=== PATIENT | female | born 1970 | race Caucasian/White ===

== ENCOUNTER 2016-05-09 14:13 | Emergency (ER) | payer BC ==
[~2016-05-09 14:13] MED LIST: ABILIFY20 M1 PO; ABILIFY30 M1 PO; ADVAIR 2501 DISK W/D; ALBUTEROL17 GM; ALBUTEROL17 GM INH; ANASTROZOLE1 M1 PO; ASPIRIN81 MG PO; ATIVAN1 MG PO; BETAGAN5 M1 EACH EYE; BUSPAR15 MG PO; BUSPIRONE HCL15 M2 PO; CALCIUM 600 +1 EA23 PO; CALCIUM 600 +1 EAC2 PO; CALCIUM CITRATE1 TA2 PO; CALCIUM OYSTER500 MG PO; CALCIUM600 MG PO; CELEBREX100 MG PO; CIPRO500 M2 PO; CLONAZEPAM1 MG PO; EFFEXOR XR150 MG; EFFEXOR XR75 M1 PO; EFFEXOR XR75 MG; EFFEXOR XR75 MG PO; EFFEXOR75 MG PO; FISH OIL 1,0001 CA1; FISH OIL 1,0001 CA1 PO; FISH OIL 1,2001 CAP PO; FISH OIL 1,2001 EAC7 PO; FLAGYL500 MG PO; FUROSEMIDE20 MG PO; GLUCOPHAGE XR500 M1 PO; HYDROCODON-ACE1 EAC8 PO; HYDROCODONE/APA1 TAB PO; IRON1 TA1 PO; K-DUR10 ME1 PO; KEFLEX500 MG PO; KLONOPIN1 MG PO; KLOR-CON 1010 ME1 PO; LASIX20 M1 PO; LASIX20 MG PO; LIPITOR10 M1 PO; LISINOPRIL5 M1 PO; LITHIUM CARBON300 M PO; LOPRESSOR25 MG/TA1 PO; LORAZEPAM1 MG PO; LYRICA50 MG PO; MACROBID 100 M100 MG PO; MACRODANTIN100 M1 PO; MOTRIN600 MG; MULTIVITAMIN1 CAP PO; MULTIVITAMIN1 TAB PO; MULTIVITAMINS1 EAC6 PO; NAPRELAN375 MG PO; NAPRELAN500 M2 PO; NAPROXEN CR500 MG PO; NOLVADEX20 MG PO; NORCO 10-325 T1 EACH PO; OMEPRAZOLE20 M3 PO; OMEPRAZOLE40 MG PO; PHENTERMINE H37.5 M2 PO; PLAQUENIL200 M1 PO; PREDNISONE20 MG PO; PRILOSEC40 M1 PO; PROCHLORPERAZIN10 MG; PROLIA60 MG/1 M1 SQ; PROVENTIL17 GM; SEPTRA DS TABLE1 TAB PO; STOP HOME MEDICATION; SYNTHROID100 MC1 PO; SYNTHROID50 MCG PO; SYNTHROID75 MCG PO; TOPIRAMATE25 M3 PO; TRAMADOL HCL50 MG PO; TRILEPTAL150 MG PO; TRILEPTAL300 MG PO; TYLENOL325 M2 PO; TYLENOL500 MG; ULTRAM50 MG PO; VIACTIV TA1 TAB.CHEW; VITAMIN B121000 MCG PO; VITAMIN B12500 MCG PO; VITAMIN C500 MG PO; VITAMIN D1000 UNI1 PO; VITAMIN D1000 UNIT PO; WELLBUTRIN XL150 MG; WOMEN'S ONE DAI1 TAB; XALATAN2.5 M1 OP; XANAX0.5 MG; ZOCOR20 MG PO; ZOFRAN8 MG; [UNRECOGNIZED DRUG - CODE] PO
[2016-05-09] MEDS ORDERED: COSOPT EYE DROP10 ML EACH EYE (14:43)
[2016-05-09] MEDS ORDERED: JUBLIA4 ML TP (14:43)
[2016-05-09] MEDS ORDERED: XALATAN2.5 M1 EACH EYE (14:44)
[2016-05-09] MEDS ORDERED: PROVIGIL200 M1 PO (14:44)
[2016-05-09] MEDS ORDERED: PHENTERMINE H37.5 M2 PO (14:45)
[2016-05-09] MEDS ORDERED: PROLIA60 MG/1 M1 SC (14:45)
[2016-05-09] MEDS ORDERED: TOPAMAX25 M2 PO (14:46)
[2016-05-09] MEDS ORDERED: GLUCOSAMINE CH1 EAC7 PO (14:47)
[2016-05-09] MEDS ORDERED: OXYCONTIN20 M2 PO (14:48)
[2016-05-09] MEDS ORDERED: PERCOCET 5-3251 EACH PO (14:48)
[2016-05-09] MEDS ORDERED: ASPIRIN EC81 MG PO (14:54)
[2016-05-09] MEDS ORDERED: PROAIR HFA8.5 GM INH (14:56)
[2016-05-09 15:31] LABS: BASO % 0.3 % (0-2); EOS % 3.1 % (0-7); EOSINOPHIL ABSOLUTE COUNT 0.1 tho/cmm (0.0-0.7); HCT-HEMATOCRIT 34.9 % (34.0-49.0); IMMATURE GRANULOCYTES ABSOLUTE 0.01 tho/cmm (0-0.03); IMMATURE GRANULOCYTES PERCENT 0.3 % (0-0.3); LYMPH % 27.8 % (20-45); LYMPH ABSOLUTE COUNT 1.1 tho/cmm (0.8-4.5); MCH (MEAN CORPUSCULAR HGB) 24.9 pg (28.0-32.0); MCHC MEAN CORPUSCULAR HGB CONC 31.5 % (32.0-36.0); MONO % 6.4 % (0-12); MONOCYTE ABSOLUTE COUNT 0.3 tho/cmm (0.0-1.2); NEUTROPHIL ABSOLUTE COUNT 2.4 tho/cmm (1.6-8.0); NEUTROPHIL-AUTOMATED 2.4 tho/cmm (1.6-8.0); NEUTROPHILS % 62.1 % (40-80); PLATELET COUNT 173 tho/cmm (150-450); RED BLOOD COUNT 4.42 mil/cmm (4.00-5.20); RED CELL DISTRIBUTION WIDTH 14.8 % (12.4-16.4); WHITE BLOOD COUNT 3.9 tho/cmm (4.0-10.0)
[2016-05-09 15:47] LABS: ANION GAP 12 mmol/L (0-20); BLOOD UREA NITROGEN 13 mg/dl (6-24); CARBON DIOXIDE-VENOUS 29 mmol/L (22-32); CHLORIDE 103 mmol/l (96-110); CREATININE 0.95 mg/dl (0.50-1.10); GLUCOSE 126 mg/dL (70-110); SODIUM 140 mmol/L (135-145); eGFR VALUE FOR BLACK 82 mL/Min
== END 2016-05-09 16:47 ==
LOC: EDMED 14:13
PROVIDERS: Emergency Medicine
DX: R06.00 Dyspnea, unspecified (principal); J45.909 Unspecified asthma, uncomplicated; E07.9 Disorder of thyroid, unspecified; E78.5 Hyperlipidemia, unspecified; N19 Unspecified kidney failure; K21.9 Gastro-esophageal reflux disease without esophagitis; Z85.3 Personal history of malignant neoplasm of breast; Z90.49 Acquired absence of other specified parts of digestive tract; Z90.710 Acquired absence of both cervix and uterus; Z79.51 Long term (current) use of inhaled steroids; Z79.82 Long term (current) use of aspirin; Z79.890 Hormone replacement therapy; Z79.899 Other long term (current) drug therapy

== ENCOUNTER 2016-06-27 18:30 | Emergency (ER) | payer BC ==
[~2016-06-27 18:30] MED LIST changes: +ASPIRIN EC81 MG PO; +COSOPT EYE DROP10 ML EACH EYE; +GLUCOSAMINE CH1 EAC7 PO; +JUBLIA4 ML TP; +OXYCONTIN20 M2 PO; +PERCOCET 5-3251 EACH PO; +PROAIR HFA8.5 GM INH; +PROLIA60 MG/1 M1 SC; +PROVIGIL200 M1 PO; +TOPAMAX25 M2 PO; +XALATAN2.5 M1 EACH EYE
[2016-06-27 19:09] LABS: BASO % 0.2 % (0-2); EOS % 4.2 % (0-7); EOSINOPHIL ABSOLUTE COUNT 0.2 tho/cmm (0.0-0.7); HCT-HEMATOCRIT 33.7 % (34.0-49.0); HGB-HEMOGLOBIN 10.7 gm/dl (12.0-15.5); IMMATURE GRANULOCYTES ABSOLUTE 0.01 tho/cmm (0-0.03); IMMATURE GRANULOCYTES PERCENT 0.2 % (0-0.3); LYMPH % 29.6 % (20-45); LYMPH ABSOLUTE COUNT 1.3 tho/cmm (0.8-4.5); MCH (MEAN CORPUSCULAR HGB) 25.3 pg (28.0-32.0); MCHC MEAN CORPUSCULAR HGB CONC 31.8 % (32.0-36.0); MCV (MEAN CELL VOLUME) 79.7 fl (82.0-96.0); MEAN PLATELET VOLUME 9.3 cmc (9.4-12.4); MONO % 6.9 % (0-12); MONOCYTE ABSOLUTE COUNT 0.3 tho/cmm (0.0-1.2); NEUTROPHIL ABSOLUTE COUNT 2.5 tho/cmm (1.6-8.0); NEUTROPHIL-AUTOMATED 2.5 tho/cmm (1.6-8.0); NEUTROPHILS % 58.9 % (40-80); PLATELET COUNT 168 tho/cmm (150-450); RED BLOOD COUNT 4.23 mil/cmm (4.00-5.20); RED CELL DISTRIBUTION WIDTH 15.3 % (12.4-16.4); WHITE BLOOD COUNT 4.3 tho/cmm (4.0-10.0)
[2016-06-27] MEDS ORDERED: ULTRAM50 M1 PO (19:15)
[2016-06-27] MEDS ORDERED: CYCLOBENZAPRINE5 M1 PO (19:16)
[2016-06-27] MEDS ORDERED: ARIMIDEX1 M1 PO (19:17)
[2016-06-27] MEDS ORDERED: BUSPIRONE HCL15 M2 PO (19:17)
[2016-06-27] MEDS ORDERED: ABILIFY20 M1 PO (19:17)
[2016-06-27] MEDS ORDERED: LIPITOR10 M1 PO (19:17)
[2016-06-27] MEDS ORDERED: JUBLIA4 ML (19:18)
[2016-06-27] MEDS ORDERED: COSOPT EYE DROP10 ML OP (19:18)
[2016-06-27] MEDS ORDERED: PLAQUENIL200 M1 PO (19:18)
[2016-06-27] MEDS ORDERED: OMEPRAZOLE20 M3 PO (19:19)
[2016-06-27] MEDS ORDERED: PROVIGIL200 M1 PO (19:19)
[2016-06-27] MEDS ORDERED: PHENTERMINE H37.5 M1 PO (19:19)
[2016-06-27] MEDS ORDERED: XALATAN2.5 M1 EACH EYE (19:19)
[2016-06-27] MEDS ORDERED: PROLIA60 MG/1 M1 (19:20)
[2016-06-27] MEDS ORDERED: TOPAMAX25 M3 PO (19:20)
[2016-06-27] MEDS ORDERED: SYNTHROID100 MC1 PO (19:20)
[2016-06-27] MEDS ORDERED: FISH OIL 1,2001 EAC5 PO (19:21)
[2016-06-27] MEDS ORDERED: VENLAFAXINE HCL75 M5 PO (19:21)
[2016-06-27] MEDS ORDERED: VITAMIN D31000 UNI3 PO (19:21)
[2016-06-27 19:22] LABS: ANION GAP 13 mmol/L (0-20); BLOOD UREA NITROGEN 12 mg/dl (6-24); CALCIUM 8.4 mg/dl (8.5-10.5); CARBON DIOXIDE-VENOUS 25 mmol/L (22-32); CHLORIDE 107 mmol/l (96-110); CREATININE 0.96 mg/dl (0.50-1.10); GLUCOSE 97 mg/dL (70-110); POTASSIUM 3.8 mmol/L (3.7-5.1); SODIUM 141 mmol/L (135-145); eGFR VALUE FOR BLACK 81 mL/Min
[2016-06-27] MEDS ORDERED: GLUCOSAMINE HC500 M1 PO (19:22)
[2016-06-27 20:50] LABS: URINE BILIRUBIN NEGATIVE (NEG); URINE BLOOD LARGE (NEG); URINE GLUCOSE (UA) NEGATIVE (NEG); URINE KETONE NEGATIVE (NEG); URINE LEUKOCYTE ESTERASE POSITIVE (NEG); URINE NITRITE NEGATIVE (NEG); URINE PROTEIN NEGATIVE (NEG)
[2016-06-27 20:51] LABS: URINE APPEARANCE HAZY; URINE COLOR YELLOW
[2016-06-27 21:08] LABS: URINE BACTERIA 1+; URINE EPITHELIAL CELLS 0-1 /[HPF] (0-10)
[2016-06-27] MEDS ORDERED: OXYCONTIN10 M2 (21:10)
== END 2016-06-27 21:43 ==
LOC: EDMED 18:30
PROVIDERS: Physician Assistant
DX: M79.662 Pain in left lower leg (principal); R06.02 Shortness of breath; I12.9 Hypertensive chronic kidney disease with stage 1 through stage 4 chronic kidney disease, or unspecified chronic kidney disease; N18.9 Chronic kidney disease, unspecified; Z85.3 Personal history of malignant neoplasm of breast; Z79.890 Hormone replacement therapy; Z79.899 Other long term (current) drug therapy
CPT/HCPCS: J2270; J2405; Q9967

== ENCOUNTER 2016-07-11 20:24 | Emergency (ER) | payer BC ==
[~2016-07-11 20:24] MED LIST changes: +ARIMIDEX1 M1 PO; +COSOPT EYE DROP10 ML OP; +CYCLOBENZAPRINE5 M1 PO; +FISH OIL 1,2001 EAC5 PO; +GLUCOSAMINE HC500 M1 PO; +JUBLIA4 ML; +OXYCONTIN10 M2; +PHENTERMINE H37.5 M1 PO; +PROLIA60 MG/1 M1; +TOPAMAX25 M3 PO; +ULTRAM50 M1 PO; +VENLAFAXINE HCL75 M5 PO; +VITAMIN D31000 UNI3 PO
[2016-07-11] MEDS ORDERED: POTASSIUM CHLO10 ME2 (21:28)
[2016-07-11] MEDS ORDERED: LASIX20 M1 PO (21:28)
== END 2016-07-11 23:02 ==
LOC: EDMED 20:24
DX: M79.652 Pain in left thigh (principal); M79.651 Pain in right thigh
CPT/HCPCS: J2270